=== PATIENT | female | born 2000 | race Caucasian/White ===

== ENCOUNTER 2023-08-04 16:11 | Emergency (ER) | payer MEDICAID ==
[~2023-08-04] VITALS: Ht 172.7 cm; Wt 160.6 kg
[2023-08-04 16:18] VITALS: BP 141/88; PULSE 94; RESP 16; TEMP 98.5; O2SAT 98
== END 2023-08-04 19:47 | disposition left against medical advice (07) ==
LOC: ER 16:12
DX: M54.40 Lumbago with sciatica, unspecified side (principal); Z53.21 Procedure and treatment not carried out due to patient leaving prior to being seen by health care provider
CPT/HCPCS: 99281